=== PATIENT | female | born 1935 | race Caucasian/White ===

== ENCOUNTER → 2018-02-27 | Outpatient (CLI) | payer MEDICARE, OTHER ==
[2015-07-20 12:27] VITALS: BP 124/76
[~2018-02-27] MED LIST: ALEN70TA3 PO; AMLO5TAB4 PO; ASPI-630 PO; CELE200C PO; CHOL100013 PO; GLUC100018 PO; IOHEXOL 300 MG/ML 75 ML VIAL. IV ONE; LACT1CAP6 PO; QUIN40TA PO; TRIA1CAP3 PO; VITA400T6 PO
[2018-02-27 14:01] LABS: CREATININE 0.7 mg/dL (0.6-1.0); GFR 80.3
--- NOTE | 2018-02-27 16:32 | RAD ---
CTA of the chest with contrast, 02/27/2018: HISTORY: Thoracic aortic aneurysm Multidetector CT imaging was performed following an IV bolus injection of iodinated contrast material. Multiplanar reconstructions were produced including sagittal and coronal MIP images. There is extensive calcific plaquing of the thoracic aorta. Mild to moderate scattered coronary artery calcifications are present. The ascending aorta measures 4.7 cm in width, as best seen in the coronal plane. There is no evidence of aortic dissection. There is only mild narrowing of the innominate, left common carotid and left subclavian arteries from the aortic arch due to calcific plaquing. Just proximal to the innominate artery the ascending aorta measures 4.3 cm in AP dimension. At the mid aortic arch level the aorta measures approximately 3.3 cm in width. The descending inferior thoracic aorta is tortuous with markedly irregular internal plaquing, particularly at the distal aortic level. The distal descending thoracic aorta measures approximately 3.8 cm in width. This extensive plaquing extends into the upper abdominal aorta where there is moderate narrowing of the celiac artery origin and severe narrowing of the superior mesenteric artery origin. There is also appears to be severe narrowing of the right renal artery origin and moderate narrowing of the left renal artery origin. Note is made of moderate emphysematous change in the lungs. There are streaky bilateral parenchymal opacities compatible with scarring. There are scattered pleural scars as well. There is a 1 cm spiculated opacity in the superior segment of the left lower lobe abutting the oblique fissure as best seen on sagittal image #29. No pleural fluid is evident. IMPRESSION: 1. Extensive aortic atherosclerosis with a 4.7 cm aneurysm of the ascending aorta. 2. Mild dilatation of the distal descending thoracic aorta with underlying markedly irregular atherosclerotic plaquing. 3. 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 4. Emphysema with pleural/parenchymal scarring. 5. Scattered pulmonary opacities are probably predominantly due to scarring, although there is a small spiculated lesion in the left upper lobe which is of greater concern for possible malignancy. CT follow-up is suggested, if clinically indicated. 5. Moderate coronary artery calcifications. Electronically signed by: Christian Barroso MD (02/27/2018 4:28 PM) [facility]
== END | disposition home or self-care (01) ==
LOC: CT 13:24
PROVIDERS: ATTEND Family Medicine
DX: I71.2 Thoracic aortic aneurysm, without rupture (principal); I25.10 Atherosclerotic heart disease of native coronary artery without angina pectoris; J43.8 Other emphysema; I70.1 Atherosclerosis of renal artery
CPT/HCPCS: 36415; 71275; 82565; 84520; Q9967

== ENCOUNTER 2018-11-23 17:15 | Inpatient (IN) | payer MEDICARE, OTHER ==
[~2018-11-23] VITALS: Ht 165.1 cm; Wt 51.7 kg
[~2018-11-23 17:15] MED LIST changes: -IOHEXOL 300 MG/ML 75 ML VIAL. IV ONE
[2018-11-23 17:46] VITALS: BP 91/61
[2018-11-23 19:08] LABS: BASO % 0 % (0-3); EOS % 0 % (0-3); HEMATOCRIT 45.5 % (36.0-47.0); LYMPH # 0.3 x10^3/uL (1.0-4.8); LYMPH % 2 % (24-48); MEAN CORPUSCULAR HEMOGLOBIN 30 pg (25-35); MEAN CORPUSCULAR HGB CONC 33 g/dL (31-37); MEAN CORPUSCULAR VOLUME 90 fL (79-100); MONO # 1.1 x10^3/uL (0.0-1.1); MONO % 7 % (0-9); NEUT # 14.1 x10^3uL (1.8-7.7); NEUT % 91 % (31-73); PLATELET COUNT 381 x10^3/uL (140-400); RED BLOOD COUNT 5.03 x10^6/uL (3.50-5.40); RED CELL DISTRIBUTION WIDTH 13.7 % (11.5-14.5); WHITE BLOOD COUNT 15.5 x10^3/uL (4.0-11.0)
[2018-11-23 19:12] LABS: ALBUMIN 2.7 g/dL (3.4-5.0); ALBUMIN/GLOBULIN RATIO 0.6 (1.0-1.7); CALCIUM 8.2 mg/dL (8.5-10.1); GFR 53.1; POTASSIUM 3.8 mmol/L (3.5-5.1); TOTAL BILIRUBIN 1.2 mg/dL (0.2-1.0); TOTAL PROTEIN 7.2 g/dL (6.4-8.2)
[2018-11-23] MEDS ORDERED: ACET325T9 PO (19:26)
[2018-11-23] MEDS ORDERED: ASPI-630 PO (19:26)
[2018-11-23] MEDS ORDERED: QUIN40TA16 PO (19:27)
[2018-11-23] MEDS ORDERED: AMLO10TA4 PO (19:27)
[2018-11-23] MEDS ORDERED: HYDR12.58 PO (19:28)
[2018-11-23 19:36] VITALS: BP 99/59
[2018-11-23 19:40] LABS: % LYMPHS 2 % (24-48); % MONOS 3 % (0-10); % SEGS 95 % (35-66); PLT ESTIMATE ADEQUATE (ADEQUATE)
[2018-11-23 19:43] LABS: HYPOCHROMIA SLIGHT
[2018-11-23] MEDS: IPRATRPIUM/ALBUTEROL 0.5/2.5MG 3 ML NEBU. NEB SCH (20:00)
[2018-11-23] MEDS ORDERED: VANCOMYCIN 1.25 GM in IV NORMAL SALINE 250ML 250 ML IV ONE (20:00)
[2018-11-23] MEDS: IV NORMAL SALINE 1,000ML 1,000 ML IV SCH ×2 (23:00→23:45)
[2018-11-23] MEDS: methylPREDNISolone SOD SUCC PF 40 MG/ML VIAL. IV SCH (23:04)
[2018-11-23] MEDS: HEPARIN for SUB-Q USE 5,000 UNIT/ML VIAL. SQ SCH (23:10)
[2018-11-23 23:25] VITALS: BP 121/65
--- NOTE | 2018-11-23 23:54 | RAD ---
V/Q LUNG SCAN CLINICAL INDICATIONS: Dyspnea. Shortness of air. COMPARISON: Chest CT performed today. No previous V/Q nuclear medicine scan available. TECHNIQUE: After inhalation of 26 mCi of Xenon 133 gas, anterior and posterior planar images of the lung shay were performed in the single breath and equilibrium and washout phases. After IV infusion of 5.5 mCi of technetium 99m MAA, multiplanar images of both lung shay were performed. FINDINGS: There is significant retention of radiotracer activity in the ventilation portion of the study secondary to air trapping. There are defects within both lower lung zones on the ventilation portion of the study. No segmental perfusion defects are seen. Small subsegmental perfusion defects are seen which are less prominent than the ventilatory defects. Therefore, the probability for pulmonary embolism is low. IMPRESSION: Low probability for pulmonary embolism. Electronically signed by: Jarrett Payne MD (11/23/2018 11:52 PM) [facility]
[2018-11-24] VITALS (18 sets, daily range): BP systolic 83–114; BP diastolic 46–69
[2018-11-24] MEDS ORDERED: LORA1TAB (00:18)
--- NOTE | 2018-11-24 00:23 | RAD ---
CT study of the chest without contrast Clinical indications: Shortness of air. TECHNIQUE: Noncontrast helical CT scanning of the chest was performed. Without contrast, the sensitivity to detect organ pathology is decreased. PQRS compliance Statement One or more of the following individualized dose reduction techniques were utilized for this study: 1. Automated exposure control 2. Adjustment of the mA and/or kV according to patient size 3. Use of iterative reconstruction technique COMPARISON: February 27, [address] FINDINGS: No enlarging mediastinal lymphadenopathy is evident. Evaluation for hilar lymphadenopathy is difficult without contrast. No axillary lymphadenopathy is evident. Calcified atheromatous disease of the thoracic aorta is seen. There is fusiform aneurysmal dilatation of the ascending aorta measuring up to 5 cm in greatest dimension. This is unchanged. There is an old calcified dissection of the descending thoracic aorta with soft and calcified plaque formation present here. This could be seen previously. The caliber of the descending thoracic aorta at this level measures up to 4.5 cm in greatest caliber. This measured 4.2 cm previously. The heart size is mildly enlarged. Calcified atheromatous disease of the coronary arteries is seen. No pericardial effusion is seen. There is a dense consolidative lung infiltrate within the posterior right lower lobe which was not seen on the previous study. No water density such as pleural fluid is seen in this area. The Hounsfield unit measurements of this consolidation measures around 30. There are new nodular lung infiltrates within the rest of the right lower lobe and within the right middle lobe and within the right upper lobe and the left upper lobe especially the inferior segment lingula. These are centered around bronchi and therefore may represent distal airway inflammatory or infectious disease. There is chronic nodular scarring bilaterally. Spiculated lesion within the left upper lobe seen previously measures 17 mm in greatest transverse dimension seen on image 21 and series 2. This measures 16 mm previously and therefore has not changed significantly. No pneumothorax is seen. The proximal bronchial tree is patent otherwise. There is a new mild compression fracture of the superior endplate of T8. No lytic process is seen. There are cortical disruptions of the manubrium and the mid body of the sternum which were seen previously. This could be due to misregistration artifact but clinical correlation is recommended. IMPRESSION: New bilateral nodular lung infiltrates consistent with distal airway bronchial inflammatory/infectious disease. However, there is a dense consolidative lung infiltrate within the medial aspect of the right lower lobe which may represent dense focus of pneumonia. Underlying malignancy in this area cannot be excluded. No significant change in size of spiculated nodule within the left upper lobe since the previous study. New mild compression fracture of the superior endplate of T8. Question of fractures of the manubrium and mid body of sternum. This most likely represents misregistration artifact in the sagittal sequence but clinical correlation is recommended. Aneurysm of the ascending aorta which has not changed significantly. 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 However, the caliber of this portion of the thoracic aorta has increased slightly from the previous study. Extensive calcified atheromatous disease of the coronary arteries. Electronically signed by: Jarrett Payne MD (11/24/2018 12:20 AM) [facility]
[2018-11-24] MEDS: LORazepam 1 MG TABLET PO SCH ×2 (00:38→20:21)
--- NOTE | 2018-11-24 00:55 | RAD ---
Indication:Fall, left shoulder pain TECHNIQUE: 3 views of the left shoulder COMPARISON:None FINDINGS/ impression: No acute fracture or dislocation. Chronic interstitial changes in the visualized left lung. No significant arthritic process. Electronically signed by: Percy Louis DO (11/24/2018 12:52 AM) [facility]
[2018-11-24 02:02] LABS: BACTERIA,URINE FEW /HPF (0-FEW); BILIRUBIN,URINE NEG (NEG); CLARITY,URINE HAZY; COLOR,URINE YELLOW; GLUCOSE,URINE NEG (NEG); NITRITE,URINE NEG (NEG); RBC,URINE OCC /HPF (0-2); SQUAMOUS EPITHELIAL CELL,UR FEW /LPF; UROBILINOGEN,URINE 2 mg/dL (0.2 mg/dL); WBC,URINE >40 /HPF (0-4)
[2018-11-24] MEDS: IPRATRPIUM/ALBUTEROL 0.5/2.5MG 3 ML NEBU. NEB SCH ×4 (05:42→20:04)
[2018-11-24] MEDS: methylPREDNISolone SOD SUCC PF 40 MG/ML VIAL. IV SCH ×3 (06:18→21:51)
[2018-11-24] MEDS: IV NORMAL SALINE 1,000ML 1,000 ML IV SCH ×4 (06:18→11:42)
[2018-11-24] MEDS: HEPARIN for SUB-Q USE 5,000 UNIT/ML VIAL. SQ SCH ×3 (06:24→21:52)
[2018-11-24 07:23] LABS: BASO % 0 % (0-3); EOS % 0 % (0-3); HEMATOCRIT 41.3 % (36.0-47.0); HEMOGLOBIN 13.8 g/dL (12.0-15.5); LYMPH # 0.1 x10^3/uL (1.0-4.8); LYMPH % 1 % (24-48); MEAN CORPUSCULAR HEMOGLOBIN 30 pg (25-35); MEAN CORPUSCULAR HGB CONC 33 g/dL (31-37); MEAN CORPUSCULAR VOLUME 91 fL (79-100); MONO # 0.3 x10^3/uL (0.0-1.1); MONO % 2 % (0-9); NEUT # 12.6 x10^3uL (1.8-7.7); NEUT % 97 % (31-73); PLATELET COUNT 336 x10^3/uL (140-400); RED BLOOD COUNT 4.55 x10^6/uL (3.50-5.40); RED CELL DISTRIBUTION WIDTH 13.5 % (11.5-14.5); WHITE BLOOD COUNT 13.1 x10^3/uL (4.0-11.0)
[2018-11-24 07:31] LABS: CALCIUM 7.5 mg/dL (8.5-10.1); CREATININE 0.8 mg/dL (0.6-1.0); GFR 68.7; POTASSIUM 3.4 mmol/L (3.5-5.1)
[2018-11-24] MEDS ORDERED: VANCOMYCIN 750 MG in IV NORMAL SALINE 250ML 250 ML IV SCH (07:45)
[2018-11-24] MEDS: VANCOMYCIN 750 MG in IV NORMAL SALINE 250ML 250 ML IV SCH ×2 (09:14→20:22)
[2018-11-24] MEDS: ASPIRIN 81 MG TAB.CHEW PO SCH (09:15)
[2018-11-24] MEDS: NICOTINE 21MG PATCH. TD SCH (09:15)
[2018-11-24] MEDS: VANCOMYCIN PER PHARMACY MC PRN (09:28)
[2018-11-24 14:49] LABS: CALCIUM 7.2 mg/dL (8.5-10.1); CREATININE 0.8 mg/dL (0.6-1.0); GFR 68.7; POTASSIUM 3.2 mmol/L (3.5-5.1)
[2018-11-24] MEDS ORDERED: NORMAL SALINE IV SCH (15:00)
[2018-11-24] MEDS ORDERED: POTASSIUM CHLORIDE IV SCH (15:00)
[2018-11-24] MEDS: POTASSIUM CL 40MEQ IN 0.9%NACL 1,000 ML IV SCH (15:58)
[2018-11-24] MEDS: LACTOBACILLUS RHAMNOSUS GG 1 CAPSULE. PO SCH (20:21)
[2018-11-25] VITALS (11 sets, daily range): BP systolic 93–124; BP diastolic 48–64
[2018-11-25] MEDS: POTASSIUM CL 40MEQ IN 0.9%NACL 1,000 ML IV SCH ×3 (02:45→23:15)
[2018-11-25] MEDS: HEPARIN for SUB-Q USE 5,000 UNIT/ML VIAL. SQ SCH ×3 (05:38→21:46)
[2018-11-25] MEDS: methylPREDNISolone SOD SUCC PF 40 MG/ML VIAL. IV SCH ×3 (05:38→21:46)
[2018-11-25 07:50] LABS: BASO % 0 % (0-3); EOS % 0 % (0-3); HEMATOCRIT 39.8 % (36.0-47.0); HEMOGLOBIN 13.2 g/dL (12.0-15.5); LYMPH # 0.2 x10^3/uL (1.0-4.8); LYMPH % 2 % (24-48); MEAN CORPUSCULAR HEMOGLOBIN 30 pg (25-35); MEAN CORPUSCULAR HGB CONC 33 g/dL (31-37); MEAN CORPUSCULAR VOLUME 90 fL (79-100); MONO # 0.3 x10^3/uL (0.0-1.1); MONO % 3 % (0-9); NEUT % 95 % (31-73); PLATELET COUNT 360 x10^3/uL (140-400); RED CELL DISTRIBUTION WIDTH 13.4 % (11.5-14.5); WHITE BLOOD COUNT 10.5 x10^3/uL (4.0-11.0)
[2018-11-25 07:55] LABS: CREATININE 0.6 mg/dL (0.6-1.0); GFR 95.7; POTASSIUM 3.7 mmol/L (3.5-5.1)
[2018-11-25] MEDS: IPRATRPIUM/ALBUTEROL 0.5/2.5MG 3 ML NEBU. NEB SCH ×4 (08:00→20:44)
[2018-11-25 08:01] LABS: VANC TR 11.9 mcg/mL (10.0-20.0)
[2018-11-25] MEDS: VANCOMYCIN PER PHARMACY MC PRN (08:33)
[2018-11-25] MEDS: NICOTINE 21MG PATCH. TD SCH (09:14)
[2018-11-25] MEDS: LACTOBACILLUS RHAMNOSUS GG 1 CAPSULE. PO SCH ×2 (09:14→21:46)
[2018-11-25] MEDS: ASPIRIN 81 MG TAB.CHEW PO SCH (09:14)
[2018-11-25] MEDS: VANCOMYCIN 1 GM in IV NORMAL SALINE 250ML 250 ML IV SCH ×2 (10:48→20:26)
[2018-11-25] MEDS: LORazepam 1 MG TABLET PO SCH (21:46)
--- NOTE | 2018-11-25 22:42 | PDOC ---
PROVIDER NOTE PROVIDER NOTE PROVIDER NOTE CARDIOLOGY CONSULTATION NOTE Reason for consultation: Aortic aneurysm Patient is a pleasant 83-year-old woman who comes into the hospital in the setting of a COPD exacerbation/pneumonia. Cardio he was asked to evaluate her for her cardiac history. Patient denies any specific cardiac limitations. She is actually unaware of any prior history of aneurysm although by her chart history there does certainly seem to be a prior history of a sending aortic aneurysm. She reports history of hypertension. Currently denies any specific complaints such as angina or chest pain. She is suffering from shortness of breath and cough related to her infectious process her naomi properly was recently in a jail and is convalescing there. Past medical history notable for hypertension, aortic aneurysm and cataract surgery. She also has osteoporosis Denies any alcohol, tobacco or illicit drug use. Allergies to penicillins. Current cardiac medications: Quinapril and amlodipine. She is also on aspirin. Her blood pressure medicines have not been administered at this hospital physician. Review systems is limited due to the patient's mild forgetfulness. She otherwise denies anything as noted above On examination she is a frail elderly woman in no acute distress Lungs are notable for bilateral wheezing and rhonchi Heart tones are regular without any obvious murmurs rubs or gallops Abdomen is soft nontender nondistended Neurologic no focal deficits No significant edema. Diagnostic studies CT scan of the chest is consistent with inflammatory changes and infectious process. Per report no significant changes noted in the ascending aortic aneurysm measuring 5 cm. Telemetry does not reveal any significant arrhythmias Primary perfusion imaging does not reveal any evidence of embolus. Labs are otherwise grossly unremarkable. Impression: 1. 83-year-old woman with known history of hypertension and a setting aortic aneurysm which by CT scan on a noncontrast study appears to be stable and dimensions. Recommendations: 1. Continue treatment of her acute pulmonary issues. She will need follow-up on an outpatient basis for monitoring every sending aortic aneurysm although in the long-term she may not be a great candidate for any surgical intervention. 2. Continue close monitoring of her blood pressure. Thank you for this consultation. Please call with questions. Late entry for 11/25/2018 FALGUNI HERNDON MD Nov 25, 2018 22:42
--- NOTE | 2018-11-25 23:58 | PN ---
DATE: 11/25/2018 SUBJECTIVE: The patient is an 83-year-old female, who came in with acute respiratory failure. She is resting fairly comfortably. She is making good progress overall. She seems to be improved overall with her situation. The patient's CT scan of the chest showed bilateral nodular lung infiltrates consistent with airway infections, possible underlying malignancy there. The patient; otherwise, seems to be doing better, seems to be markedly improved. OBJECTIVE: VITAL SIGNS: Blood pressure 110/55, respirations 13, pulse 87, afebrile. NEUROLOGIC: The patient is alert and oriented x 3. Speech fluent, spontaneous, appropriate. Cranial nerves 2-12 grossly intact. LABORATORY DATA: The patient's white count has come down from 15 down to 10, hemoglobin down to 13.2. The patient; otherwise, seems to be resting fairly comfortably, making fairly good progress overall. She will continue to be monitored carefully, make further evaluation on her as indicated. The patient's urine still pending for culture. She had greater than 40 white blood cells per high powered field. She will be downgraded from ICU to Med/Surg floor. Continue on IV antibiotic therapies. Continue to monitor her overall respiratory status. IMPRESSION: Therefore, acute respiratory distress secondary to lower respiratory tract infection, urinary tract infection of unknown etiology, chronic obstructive pulmonary disease, chronic emphysema, multilobular sepsis, hypokalemia. DEVON LYNN MD DR: CHUY/bertrand JOB#: [id number] / [id number]
[2018-11-26 00:01] VITALS: BP 111/56
[2018-11-26 04:25] VITALS: BP 140/71
[2018-11-26] MEDS: POTASSIUM CL 40MEQ IN 0.9%NACL 1,000 ML IV SCH ×3 (04:42→13:47)
[2018-11-26] MEDS: methylPREDNISolone SOD SUCC PF 40 MG/ML VIAL. IV SCH ×3 (05:46→20:37)
[2018-11-26] MEDS: HEPARIN for SUB-Q USE 5,000 UNIT/ML VIAL. SQ SCH ×3 (05:48→20:41)
[2018-11-26 07:00] LABS: BASO % 0 % (0-3); EOS % 0 % (0-3); HEMATOCRIT 39.5 % (36.0-47.0); HEMOGLOBIN 13.3 g/dL (12.0-15.5); LYMPH # 0.3 x10^3/uL (1.0-4.8); LYMPH % 3 % (24-48); MEAN CORPUSCULAR HEMOGLOBIN 30 pg (25-35); MEAN CORPUSCULAR HGB CONC 34 g/dL (31-37); MEAN CORPUSCULAR VOLUME 90 fL (79-100); MONO # 0.5 x10^3/uL (0.0-1.1); MONO % 6 % (0-9); NEUT # 8.4 x10^3uL (1.8-7.7); NEUT % 92 % (31-73); PLATELET COUNT 401 x10^3/uL (140-400); RED BLOOD COUNT 4.37 x10^6/uL (3.50-5.40); WHITE BLOOD COUNT 9.2 x10^3/uL (4.0-11.0)
[2018-11-26 07:07] LABS: CALCIUM 7.3 mg/dL (8.5-10.1); CREATININE 0.5 mg/dL (0.6-1.0); GFR 118.1; POTASSIUM 3.9 mmol/L (3.5-5.1)
[2018-11-26 07:32] VITALS: BP 130/77
[2018-11-26] MEDS: VANCOMYCIN 1 GM in IV NORMAL SALINE 250ML 250 ML IV SCH ×2 (09:03→20:46)
[2018-11-26] MEDS: LACTOBACILLUS RHAMNOSUS GG 1 CAPSULE. PO SCH ×2 (09:03→20:36)
[2018-11-26] MEDS: NICOTINE 21MG PATCH. TD SCH (09:03)
[2018-11-26] MEDS: ASPIRIN 81 MG TAB.CHEW PO SCH (09:03)
[2018-11-26 10:21] VITALS: BP 131/72
[2018-11-26] MEDS: IPRATRPIUM/ALBUTEROL 0.5/2.5MG 3 ML NEBU. NEB SCH ×4 (10:22→20:22)
[2018-11-26] MEDS: FUROSEMIDE 20 MG/2 ML VIAL IVP SCH (10:38)
--- NOTE | 2018-11-26 11:09 | RAD ---
Portable chest, 11/26/2018: HISTORY: Shortness of breath The heart is mildly enlarged. There is extensive calcific plaquing of the aorta. There are moderate bilateral interstitial and airspace opacities.These were also evident on the CT study of 11/23/2018. Autumn B lines are present. There is underlying emphysema. Blunting of the lateral costophrenic angles suggests a small amount of pleural fluid or scarring. Comparison with the CT study is inaccurate due to technical differences, however, the basilar opacities appear to have worsened. There is a mild thoracolumbar scoliosis with moderate multilevel degenerative change. IMPRESSION: 1. Emphysema with parenchymal scarring. 2. Bilateral pulmonary infiltrates which appear to have worsened since 11/23/2018, with possible underlying pleural effusions. The findings may reflect a combination of congestive heart failure and pneumonia. Electronically signed by: Christian Barroso MD (11/26/2018 11:06 AM) [facility]
[2018-11-26 15:01] VITALS: BP 125/73
--- NOTE | 2018-11-26 17:44 | PDOC ---
PROVIDER NOTE PROVIDER NOTE PROVIDER NOTE Asked nursing staff to provide our office info for f/u regarding ascending aneurysm in 3-4 months. FALGUNI HERNDON MD Nov 26, 2018 17:44
[2018-11-26] MEDS ORDERED: ACETAMINOPHEN 325 MG TABLET PO ONE (18:28)
[2018-11-26] MEDS ORDERED: ACETAMINOPHEN 500 MG TABLET PO PRN (18:30)
[2018-11-26 19:15] VITALS: BP 140/86
[2018-11-26 20:01] LABS: VANC TR 17.1 mcg/mL (10.0-20.0)
[2018-11-26] MEDS: LORazepam 1 MG TABLET PO SCH (20:37)
[2018-11-26] MEDS: VANCOMYCIN PER PHARMACY MC PRN (20:38)
[2018-11-27] MEDS: POTASSIUM CL 40MEQ IN 0.9%NACL 1,000 ML IV SCH ×3 (00:46→15:15)
[2018-11-27] MEDS: HEPARIN for SUB-Q USE 5,000 UNIT/ML VIAL. SQ SCH ×3 (05:12→21:34)
[2018-11-27] MEDS: methylPREDNISolone SOD SUCC PF 40 MG/ML VIAL. IV SCH ×3 (05:12→21:35)
[2018-11-27 05:17] VITALS: BP 127/64
[2018-11-27] MEDS: FUROSEMIDE 20 MG/2 ML VIAL IVP SCH (08:14)
[2018-11-27] MEDS: VANCOMYCIN 1 GM in IV NORMAL SALINE 250ML 250 ML IV SCH ×2 (08:14→19:59)
[2018-11-27] MEDS: LACTOBACILLUS RHAMNOSUS GG 1 CAPSULE. PO SCH ×2 (08:14→19:59)
[2018-11-27] MEDS: NICOTINE 21MG PATCH. TD SCH (08:14)
[2018-11-27] MEDS: ASPIRIN 81 MG TAB.CHEW PO SCH (08:14)
[2018-11-27] MEDS: IPRATRPIUM/ALBUTEROL 0.5/2.5MG 3 ML NEBU. NEB SCH ×4 (10:23→20:54)
[2018-11-27 11:16] VITALS: BP 113/78
[2018-11-27 14:42] VITALS: BP 135/73
[2018-11-27 19:10] VITALS: BP 148/90
[2018-11-27] MEDS: LORazepam 1 MG TABLET PO SCH (19:59)
[2018-11-27 22:48] VITALS: BP 137/81
--- NOTE | 2018-11-28 00:18 | PN ---
DATE: SUBJECTIVE: An 83-year-old female in with acute exacerbation of COPD with respiratory failure. The patient herself is resting fairly comfortably today. Still very weak, will be continued rehab. OBJECTIVE: VITAL SIGNS: Blood pressure 135/73, respiratory rate 20, pulse 70s, afebrile. The patient is on 2 liters continuous oxygen at 92% to 93%. GENERAL: The patient is exhausted with minimal exertion. The patient otherwise is alert and oriented. LUNGS: Show diminished breath sounds throughout, but clear to somewhat than they have been. Sputums have been nonspecific. CARDIOVASCULAR: Otherwise, stable. ABDOMEN: Soft, nontender. EXTREMITIES: No clubbing, cyanosis, nor edema. NEUROLOGIC: Baseline for she is very weak versus weak from the illness itself. Otherwise, the patient continues to be monitored carefully and has been seen by Cardiology as well. We will follow up. IMPRESSION: Acute respiratory distress secondary to lower respiratory tract infection, urinary tract infection of unknown etiology, chronic obstructive pulmonary disease, chronic emphysema, multilobar emphysema, sepsis, hypokalemia, general failure to thrive. History of tobaccoism. Severe protein malnutrition, hyponatremia. PLAN: As above. Continue to monitor the patient accordingly and will go ahead and continue aggressive pulmonary toilet. Make further evaluation on her plan for rehab distribution in a couple of days or so. DEVON LYNN MD DR: CHUY/bertrand JOB#: [id number] / [id number]
[2018-11-28] MEDS: IPRATRPIUM/ALBUTEROL 0.5/2.5MG 3 ML NEBU. NEB SCH ×4 (04:59→20:31)
[2018-11-28] MEDS: methylPREDNISolone SOD SUCC PF 40 MG/ML VIAL. IV SCH ×3 (05:27→21:31)
[2018-11-28] MEDS: HEPARIN for SUB-Q USE 5,000 UNIT/ML VIAL. SQ SCH ×3 (05:28→21:31)
[2018-11-28 05:47] VITALS: BP 127/71
[2018-11-28 08:17] LABS: VANC TR 15.8 mcg/mL (10.0-20.0)
[2018-11-28] MEDS: VANCOMYCIN 1 GM in IV NORMAL SALINE 250ML 250 ML IV SCH ×2 (08:23→20:56)
[2018-11-28] MEDS: LACTOBACILLUS RHAMNOSUS GG 1 CAPSULE. PO SCH ×2 (08:23→21:31)
[2018-11-28] MEDS: ASPIRIN 81 MG TAB.CHEW PO SCH (08:23)
[2018-11-28] MEDS: NICOTINE 21MG PATCH. TD SCH (08:24)
[2018-11-28] MEDS: FUROSEMIDE 20 MG/2 ML VIAL IVP SCH (08:24)
[2018-11-28] MEDS: VANCOMYCIN PER PHARMACY MC PRN (08:31)
[2018-11-28 14:36] VITALS: BP 132/69
[2018-11-28 19:10] VITALS: BP 135/88
[2018-11-28] MEDS: LORazepam 1 MG TABLET PO SCH (21:31)
[2018-11-28] MEDS: levoFLOXacin 500 MG TABLET PO SCH (21:31)
--- NOTE | 2018-11-28 22:07 | PN ---
DATE: 11/28/2018 SUBJECTIVE: The patient is an 83-year-old female who is in with acute respiratory failure. The patient is resting fairly comfortably, making fairly good progress. Overall, seems a little stronger today than she had when she is still receiving PT, OT and alike. OBJECTIVE: VITAL SIGNS: Blood pressure 132/69, respiration 22, pulse 82, afebrile. GENERAL: The patient is alert and oriented x 3. Speech fluent, spontaneous, appropriate. LUNGS: Diminished throughout, but she is moving air little bit better than she has been. CARDIOVASCULAR: Irregularly irregular rhythm. ABDOMEN: Soft, nontender. EXTREMITIES: No clubbing, cyanosis, nor edema. IMPRESSION: Therefore, acute respiratory failure secondary to lower respiratory tract infection; urinary tract infection, unknown etiology; chronic obstructive pulmonary disease, chronic emphysema, multilobar emphysema, sepsis, hypokalemia, generalized failure to thrive, history of tobaccoism, severe protein malnutrition and hyponatremia. PLAN: Continue on present drug regimen and hopefully, ready for discharge here in 2 days. DEVON LYNN MD DR: CHUY/bertrand JOB#: [id number] / [id number]
[2018-11-28 22:25] VITALS: BP 155/83
[2018-11-29] MEDS: IPRATRPIUM/ALBUTEROL 0.5/2.5MG 3 ML NEBU. NEB SCH ×4 (05:17→20:30)
[2018-11-29] MEDS: methylPREDNISolone SOD SUCC PF 40 MG/ML VIAL. IV SCH ×2 (05:33→21:33)
[2018-11-29] MEDS: HEPARIN for SUB-Q USE 5,000 UNIT/ML VIAL. SQ SCH ×3 (05:34→21:36)
[2018-11-29 06:27] VITALS: BP 119/56
[2018-11-29] MEDS: NICOTINE 21MG PATCH. TD SCH ×2 (09:00→12:20)
[2018-11-29] MEDS: VANCOMYCIN 1 GM in IV NORMAL SALINE 250ML 250 ML IV SCH ×2 (09:51→19:40)
[2018-11-29] MEDS: LACTOBACILLUS RHAMNOSUS GG 1 CAPSULE. PO SCH ×2 (09:51→21:33)
[2018-11-29] MEDS: FUROSEMIDE 20 MG/2 ML VIAL IVP SCH (09:51)
[2018-11-29] MEDS: ASPIRIN 81 MG TAB.CHEW PO SCH (09:52)
[2018-11-29 10:27] VITALS: BP 118/62
[2018-11-29] MEDS: CLOTRIMAZOLE 10 MG TROCHE MM SCH ×4 (12:19→21:33)
[2018-11-29 16:02] VITALS: BP 135/82
--- NOTE | 2018-11-29 18:15 | PN ---
DATE: SUBJECTIVE: The patient is resting comfortably, breathing a lot easier than. She has been making good progress overall with that situation. The patient is being treated for bronchial infection, inflammation causing her exacerbation of COPD. PHYSICAL EXAMINATION: VITAL SIGNS: The patient's blood pressure 120/60, respiratory rate 18, pulse 72 and afebrile. GENERAL: The patient is much more alert. LUNGS: Diminished, but clear. There has been some tenderness in the left lower ribcage, does not want it x-rayed. CARDIOVASCULAR: Irregularly irregular rhythm. ABDOMEN: Soft, nontender. EXTREMITIES: No clubbing, cyanosis or edema. NEUROLOGIC: The patient is alert and oriented x 3. PLAN: The patient will continue to be monitored on IV antibiotic therapy, aggressive pulmonary toilet, decrease her steroids and then have her possibly ready for transfer to the rehab facility tomorrow. DEVON LYNN MD DR: CHUY/bertrand JOB#: [id number] / [id number]
[2018-11-29 19:58] VITALS: BP 138/91
[2018-11-29] MEDS: levoFLOXacin 500 MG TABLET PO SCH (21:33)
[2018-11-29] MEDS: LORazepam 1 MG TABLET PO SCH (21:33)
[2018-11-29 23:18] VITALS: BP 125/61
[2018-11-30] MEDS: IPRATRPIUM/ALBUTEROL 0.5/2.5MG 3 ML NEBU. NEB SCH ×3 (05:27→16:00)
[2018-11-30 05:32] VITALS: BP 117/64
[2018-11-30] MEDS: HEPARIN for SUB-Q USE 5,000 UNIT/ML VIAL. SQ SCH ×2 (05:57→14:00)
[2018-11-30] MEDS: CLOTRIMAZOLE 10 MG TROCHE MM SCH ×3 (05:59→14:59)
[2018-11-30] MEDS: VANCOMYCIN 1 GM in IV NORMAL SALINE 250ML 250 ML IV SCH (08:00)
[2018-11-30] MEDS: methylPREDNISolone SOD SUCC PF 40 MG/ML VIAL. IV SCH ×2 (08:57→09:00)
[2018-11-30] MEDS: NICOTINE 21MG PATCH. TD SCH (08:57)
[2018-11-30] MEDS: ASPIRIN 81 MG TAB.CHEW PO SCH (08:57)
[2018-11-30] MEDS: FUROSEMIDE 20 MG/2 ML VIAL IVP SCH ×2 (08:57→09:00)
[2018-11-30] MEDS: LACTOBACILLUS RHAMNOSUS GG 1 CAPSULE. PO SCH (08:57)
[2018-11-30 10:49] VITALS: BP 105/63
[2018-11-30 11:03] VITALS: BP 117/80
[2018-11-30] MEDS ORDERED: CLOT10TR MM (13:39)
[2018-11-30] MEDS ORDERED: LEVO500T59 PO (13:39)
[2018-11-30] MEDS ORDERED: FURO20TA3 PO (13:39)
[2018-11-30] MEDS ORDERED: IPRA3AMP29 NEB (13:39)
[2018-11-30] MEDS ORDERED: ACETAMINOPHEN 325 MG TABLET PO ONE (15:04)
[2018-11-30] MEDS ORDERED: ACETAMINOPHEN 325 MG TABLET PO PRN (15:15)
--- NOTE | 2018-11-30 19:22 | DS ---
DATE OF DISCHARGE: 11/30/2018 HOSPITAL COURSE: An 83-year-old female who came in with acute respiratory distress, having problems with breathing. Overall, the patient was given IV antibiotic therapy, steroids, and aggressive pulmonary toilet. The patient's white count came down from 15,000 down to 9. The patient's sodium was also noted to be as low as 126, came back up. Her procalcitonin was elevated and her albumin showed severe protein malnutrition. The patient otherwise made good progress during the rest of her hospitalization. Chest x-ray did show some evidence of emphysema, bilateral pulmonary infiltrates that need to be followed up as an outpatient. She has a history of smoking and was recommended to stop smoking. 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 Extensive calcified atheromatous disease of the coronary arteries. New bilateral nodular lung infiltrates consistent with right bronchial inflammatory infectious diseases; however, this needs to be followed up as an outpatient and the patient will continue to be monitored as an outpatient for this probably with repeat CT scans or x-rays, both in a pulmonary consultation. IMPRESSION: Bilateral lobe pneumonia, centrilobular emphysema, systemic inflammatory response syndrome, acute respiratory distress with hypoxia, hypotension, tachypnea, severe protein malnutrition, hyponatremia, positive D-dimer. V/Q scan showed low probability. Sputum cultures were negative. DISCHARGE PLAN: She will be on a regular diet, probably needs increased calories as she has been losing weight, try to convince her to stop smoking, tapering dose of prednisone, continue to monitor as an outpatient carefully. She goes to rehabilitation. DEVON LYNN MD DR: CHUY/bertrand JOB#: [id number] / [id number]
--- NOTE | 2018-12-14 11:18 | EKG ---
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
== END 2018-11-30 16:49 | DRG 871 ==
LOC: ICU 17:44 → 1 SOUTH 11-26 05:20
PROVIDERS: ADMIT Family Medicine; ATTEND Family Medicine
DX: A41.9 Sepsis, unspecified organism (principal); E43 Unspecified severe protein-calorie malnutrition; J18.9 Pneumonia, unspecified organism; J96.01 Acute respiratory failure with hypoxia; N39.0 Urinary tract infection, site not specified; J44.1 Chronic obstructive pulmonary disease with (acute) exacerbation; E87.1 Hypo-osmolality and hyponatremia; J44.0 Chronic obstructive pulmonary disease with (acute) lower respiratory infection; Z68.1 Body mass index [BMI] 19.9 or less, adult; J44.9 Chronic obstructive pulmonary disease, unspecified; E87.6 Hypokalemia; R62.7 Adult failure to thrive; Z87.891 Personal history of nicotine dependence
CPT/HCPCS: 36415; 71045; 71250; 73030; 78582; 80048; 80053; 80202; 81001; 82550; 83605; 84145; 84484; 85007; 85025; 85379; 87040; 87070; 87086; 87205; 87449; 87641; 93005; 94640; 96374; A9540; A9558; J1644; J1956; J2920; J3370; J7050; J7620; 97110; 97116; 97530; 97535; J7030

== ENCOUNTER → 2019-06-14 | Outpatient (CLI) | payer MEDICARE, OTHER ==
[~2019-06-14] MED LIST changes: +ACET325T9 PO; +AMLO10TA4 PO; +CLOT10TR MM; +FURO20TA3 PO; +HYDR12.58 PO; +IPRA3AMP29 NEB; +LEVO500T59 PO; +LORA1TAB; +QUIN40TA16 PO
--- NOTE | 2019-06-14 18:45 | RAD ---
Right Lower Extremity Venous Doppler Ultrasound History: Right lower extremity edema Comparison: None Procedure: Color flow, duplex, spectral analysis and 2D images are obtained with and without compression in the area of the common femoral vein, superficial femoral vein - femoral vein junction, main femoral vein (superficial femoral vein) and popliteal vein. Veins of the proximal calf are also imaged. Findings: There is normal duplex flow, color flow and compressibility of all visualized vein segments. No evidence of deep venous thrombus is present. There is a complex fluid collection in the popliteal fossa with blood flow that measures 3.2 x 0.7 x 1.9 cm. Impression: No evidence of DVT. Complex fluid collection in the popliteal fossa could be a hematoma. A neoplasm is not excluded. Electronically signed by: Fred Rodriguez III, MD (06/14/2019 6:42 PM) [facility]
== END | disposition home or self-care (01) ==
LOC: US 17:58
PROVIDERS: ATTEND Physician Assistant
DX: R60.0 Localized edema (principal); I83.891 Varicose veins of right lower extremity with other complications; I82.401 Acute embolism and thrombosis of unspecified deep veins of right lower extremity
CPT/HCPCS: 93971

== ENCOUNTER → 2020-05-09 | Outpatient (CLI) | payer MEDICARE, OTHER ==
--- NOTE | 2020-05-09 16:00 | RAD ---
Right lower extremity venous doppler ultrasound History: Knee dislocation, right leg pain Comparison: None Findings: Multiple grayscale, color, and duplex spectral analysis sonographic images were acquired of the right lower extremity veins to evaluate for the presence of DVT. There is normal phasicity. Normal compression, color-flow, and augmentation is demonstrated from the right common femoral to the popliteal veins. There is normal color flow of the proximal greater saphenous and profunda femoris veins. There is normal color flow of segments of the calf veins. No significant sonographic abnormality is demonstrated at area of concern. Impression: 1. There is no evidence of deep venous thrombosis from the right common femoral to the popliteal veins. Electronically signed by: Oren Hung MD (05/09/2020 3:57 PM) [facility]
== END ==
LOC: US 15:00
PROVIDERS: ATTEND Family Medicine
DX: M79.604 Pain in right leg (principal); M25.561 Pain in right knee
CPT/HCPCS: 93971

== ENCOUNTER → 2020-12-13 | Outpatient (CLI) | payer MEDICARE, OTHER ==
--- NOTE | 2020-12-13 16:31 | RAD ---
INDICATION: Screening for osteopenia/osteoporosis. Postmenopausal evaluation. COMPARISON: None. TECHNIQUE: Bone densitometry was performed through the lumbar spine and proximal femur. IMPRESSION: Lumbar Spine: BMD: 0.77 T-Score: -3.4 Range: Osteoporotic Proximal Femur: BMD: 0.66 T-Score: -2.4 Range: On the border between osteopenia and osteoporosis. World Health Organization Criteria for Bone Density: T-Score: > -1.0: Normal Range < -1.0 to -2.5: Osteopenic Range < -2.5: Osteoporotic Range Electronically signed by: Basilio Drew MD (12/13/2020 4:29 PM) [id number]
== END ==
LOC: DXRAD 15:35
PROVIDERS: ATTEND Family Medicine
DX: M81.0 Age-related osteoporosis without current pathological fracture (principal)
CPT/HCPCS: 77080

== ENCOUNTER → 2021-01-24 | Outpatient (CLI) | payer MEDICARE, OTHER ==
--- NOTE | 2021-01-24 16:36 | RAD ---
CT ABDOMEN+PELVIS WO dated 01/24/2021 4:10 PM Indication:Reason: EPIGASTRIC PAIN, RLQ PAIN / Spl. Instructions: / History: Comparison: No comparison is available. Technique: Helical noncontrast images were performed. One or more of the following individualized dose reduction techniques were utilized for this examinat ion: 1. Automated exposure control 2. Adjustment of the mA and/or kV according to patient size 3. Use of iterative reconstruction technique Findings: There is some mild haziness at the lung bases. There is also mild interlobular septal thickening. Fin dings could indicate mild edema. There is no consolidation or pleural fluid. The liver and spleen are homogeneous in density and normal in configuration. Evaluation of the solid organs is somewhat limit ed by lack of IV contrast. The left kidney is at the expected location and shows no apparent mass or obstruction. The right kidney is more inferiorly positioned than usual. No mass is seen. There is mod erate right side hydronephrosis. The right ureter does not appear dilated. No adrenal abnormality is seen. The pancreas appears normal. No retroperitoneal or mesenteric adenopathy is apparent. There is no abdominal soft tissue mass. Evaluation for inflammatory changes is somewhat limited by lack of int ra-abdominal fat. There is suggestion of wall thickening involving the gastric antrum. Images through the pelvis show no abnormality of the distal ureters. The bladder was nearly empty at the time of the scan, but appears grossly normal. No pelvic or inguinal adenopathy is seen. There is no apparent pelvic soft tissue mass or inflammatory process. A normal appendix is thought to be seen anterior to the cecum in the right lower abdomen. There is a tubular low attenuation structure extend ing inferiorly along the right iliac vessels and eventually exiting the pelvis at the superior sciati c notch. This does not have typical appearance of a vessel. It is possible this could represent a ple xiform neurofibroma. IMPRESSION: Somewhat limited study due to noncontrast technique. There is suggestion of thickening of the wall of the gastric antrum, and this could relate to gastritis. There is some right-sided hydronephrosis. 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 No ureteral dilata tion is seen, and this could be congenital UPJ obstruction. Electronically signed by: Dago Simmons Jr., MD (01/24/2021 4:34 PM) [id number]
== END ==
LOC: CT 16:03
PROVIDERS: ATTEND Family Medicine
DX: R10.13 Epigastric pain (principal)
CPT/HCPCS: 74176